=== PATIENT | female | born 1965 | race Asian ===

== ENCOUNTER 2019-03-12 15:10 | Inpatient (IN) | payer OTHER, SELFPAY ==
[2019-03-12] VITALS (8 sets, daily range): BP systolic 102–131; BP diastolic 54–65; PULSE 72–80; RESP 11–20; TEMP 36.6–36.8; O2SAT 96–99; BMI 25.0
[2019-03-12 15:43] LABS: Add Manual Diff / Slide Review NO; Basophils Absolute Auto 0 /uL (0-100); Basophils Percent Auto 0.3 % (0-2); Eosinophils Absolute Auto 0 /uL (0-450); Eosinophils Percent Auto 0.1 % (2-4); Hemoglobin 15.7 g/dL (12.0-16.0); Lymphocytes Absolute Auto 1400 /uL (1100-4500); Lymphocytes Percent Auto 14.1 % (25-40); Mean Corpuscular HGB Conc 34.8 % (30-36); Mean Corpuscular Hemoglobin 28.7 PG (26-34); Mean Corpuscular Volume 82.5 fL (80-100); Monocytes Absolute Auto 600 /uL (0-900); Monocytes Percent Auto 6.6 % (3-14); Neutrophils Absolute Auto 7700 /uL (1500-7000); Neutrophils Percent Auto 78.9 % (50-75); Platelet Count 322 X10^3/uL (150-400); Red Blood Cell Count 5.45 X10^6/uL (4.0-5.2); Red Cell Distribution Width 13.2 % (11.6-14.8); White Blood Cell Count 9.7 X10^3/uL (4.5-11.0)
[2019-03-12 15:44] LABS: Prothrombin Time 11.5 SECONDS (10.1-12.7)
[2019-03-12 15:47] LABS: PTT Partial Thromboplastin Tim 32 SECONDS (26.4-36.2)
[2019-03-12 15:49] LABS: Alanine Aminotransferase 17 IU/L (9-52); Albumin 4.5 g/dL (3.5-5.0); Albumin Globulin Ratio 1.3 (1.0-2.8); Alkaline Phosphatase 87 U/L (38-126); Aspartate Aminotransferase 23 IU/L (14-36); BUN Creatinine Ratio 28.3 (6-22); Bilirubin Total 0.8 mg/dL (0.2-1.3); Blood Urea Nitrogen 17 mg/dL (7-17); Calcium 8.9 mg/dL (8.4-10.2); Carbon Dioxide 26 mmol/L (22-32); Estimated Glomerular Filt Rate > 60.0 mL/min (>60); Globulin 3.5 g/dL (1.7-4.1); Glucose 140 mg/dL (70-100); HEMOLYSIS < 15 (0-50); Lipase 637 U/L (23-300); Sodium 120 mmol/L (137-145)
[2019-03-12 15:52] LABS: Potassium 2.6 mmol/L (3.4-5.1)
[2019-03-12 15:53] LABS: Chloride 76 mmol/L (98-107)
[2019-03-12] MEDS: SODIUM CHLORIDE 0.9% 1,000 ML 1000 ML IV (16:12)
[2019-03-12] MEDS: ONDANSETRON 4 MG/2 ML INJ IV (16:13)
[2019-03-12] MEDS: POTASSIUM CHLORIDE 20 MEQ TAB 40 MEQ PO (16:16)
[2019-03-12] MEDS: POTASSIUM CHLORIDE 40 MEQ in SODIUM CHLORIDE 0.9% 500 ML 130 ML IV ×2 (16:36→23:50)
--- NOTE | 2019-03-12 17:30 | ED_ITS ---
HPI - Nausea/Vomiting/Diarrhea <NOAM Kirkland - Last Filed: 03/12/19 23:12> General Chief complaint: Nausea/Vomiting/Diarrhea Stated complaint: N/V/D Time Seen by Provider: 03/12/19 15:27 Source: patient and family Mode of arrival: ambulatory Limitations: no limitations History of Present Illness HPI Narrative: This is a 53-year-old female, nonsmoker, presents to ED after she got a phone call from her primary care physician's office. Patient reports she had blood drawn today and submitted a stool sample. Patient reports she has been having diarrhea for S last 7 days averaging 15 times per 24 hour. Patient also had nausea and vomiting initially 1-2 times for 2 days with fever which subsided and today at the doctor's office she had recurring vomiting. Patient denies blood in the stool or emesis. Patient reports generalized abdominal cramping with this. She denies recent travel outside the [place] camping or drinking on treated water, recent antibiotic medication treatment. Patient's friend had similar symptoms before patient had experienced. Patient denies urinary symptoms, chest pain, breathing trouble, fainting, dizziness, generalized weakness. Patient is currently taking terbinafine for fungal told nail infection. Related Data Home Medications Medication Instructions Recorded Confirmed calcium carbonate-vitamin D3 1 tab PO DAILY 03/12/19 03/12/19 [Calcium 500 + D] lisinopril 20 mg PO DAILY 03/12/19 03/12/19 metoclopramide HCl 10 mg PO QID PRN 03/12/19 03/12/19 omeprazole 20 mg PO DAILY 03/12/19 03/12/19 ondansetron 8 mg PO Q8H PRN 03/12/19 03/12/19 terbinafine HCl 250 mg PO DAILY 03/12/19 03/12/19 Previous Rx's Medication Instructions Recorded levofloxacin 500 mg PO DAILY 5 Days #5 tab 03/14/19 Allergies Allergy/AdvReac Type Severity Reaction Status Date / Time No Known Drug Allergies Allergy Verified 03/12/19 15:24 Review of Systems <NOAM Kirkland - Last Filed: 03/12/19 23:12> Review of Systems Narrative: General: See HPI HEENT: Denies sinus pain, ear pain, sore throat, difficulty swallowing, dizziness. Respiratory: Denies dyspnea, cough, wheezing, hemoptysis, sputum. Cardiovascular: Denies chest pain, palpitations, orthopnea, edema. Gastrointestinal: See HPI : Denies dysuria, frequency, incontinence, hematuria, urinary retention. Musculoskeletal: Denies weakness, joint pain or bony pain. Skin: Denies rash, skin lesions, or other. Neurologic: Denies weakness, headache, numbness, change in speech, confusion, seizures, incoordination. Psychiatric: No concerning psychosocial issues. 12-point review of systems is negative except for those stated above. PFSH <NOAM Kirkland - Last Filed: 03/12/19 23:12> Medical History (Updated 03/12/19 @ 18:25 by Jayro Pitts DO) GERD (gastroesophageal reflux disease) (Acute) HTN (hypertension) (Acute) Social History (Updated 03/12/19 @ 17:49 by NOAM Kirkland) household members: spouse Smoking Status: Never smoker alcohol intake: never Social History (Updated 03/12/19 @ 17:49 by NOAM Kirkland) household members: spouse Smoking Status: Never smoker alcohol intake: never Exam <NOAM Kirkland - Last Filed: 03/12/19 23:12> Narrative Exam Narrative: GEN: Alert, oriented x 3, well appearing and nourished, and in no acute distress. Head: Normal cephalic, atraumatic. No scalp or temporal tenderness, palpable mass or rash. EYES: Pupils are equal, round, and reactive to light and accommodation. Extraocular muscles are intact bilaterally. There is no subconjunctival hemorrhage, exudate and sclera non-icteric. ENT: Bilateral auditory canals and tympanic membranes clear. Hearing grossly intact. Nose without bleeding, purulent discharge or deviation. Facial sinuses nontender to palpate. Mucous membrane moist, no mucosal lesion. Throat without erythema, tonsillar hypertrophy or exudate. Uvula in midline, airway patent. Neck: Trachea in midline. No JVD, non-tender without lymphadenopathy. No masses or thyroid megaly. Supple, non-tender and no meningeal signs. CARDIAC: Normal regular rate and rhythm without murmurs, gallops, or rubs. No chest wall tenderness. No peripheral edema, cyanosis or pallor. Capillary refill is less than 2 seconds. RESPIRATORY: Lungs are cleat to auscultate bilaterally. No cough, wheezes, rales, or rhonchi. No stridor, respiratory distress, increase work of breathing, or accessary muscle used. ABD: Abdomen soft, nontender and non-distended. No guarding or rebound tenderness to palpate. Bowel sounds are normal in all 4 quadrants. There is no palpable masses or organomegaly. EXT: Full painless ROM of all extremities with no loss of sensation, strength, effusion or edema. SKIN: Warm, dry, normal color for patient. No erythema, lesions or rash over visible areas. BACK: Nontender without deformity or crepitance. No flank tenderness. NEUROLOGICAL: Alert and oriented to place, time and person. Sensation and motor function intact bilaterally. No facial droops, dysphasia. PSYCHIATRIC: Good judgement and reason, without hallucinations, abnormal affect or abnormal behaviors during the examination. Initial Vital Signs Initial Vital Signs: Vital Signs Temperature 98.2 F 03/12/19 15:24 Pulse Rate 72 03/12/19 15:24 Respiratory Rate 15 03/12/19 15:24 Blood Pressure 117/65 03/12/19 15:24 Pulse Oximetry 96 03/12/19 15:24 <Alea Odom DO - Last Filed: 03/15/19 19:20> Initial Vital Signs Initial Vital Signs: Vital Signs Temperature 98.2 F 03/12/19 15:24 Pulse Rate 72 03/12/19 15:24 Respiratory Rate 15 03/12/19 15:24 Blood Pressure 117/65 03/12/19 15:24 Pulse Oximetry 96 03/12/19 15:24 Course <NOAM Kirkland - Last Filed: 03/12/19 23:12> Orders Ordered: Discontinued Medications Heparin Sodium (Porcine) (Heparin) 5,000 unit SUBCUT BID [facility] Last Admin: 03/14/19 09:17 Dose: 5,000 unit Documented by: Admin: 03/13/19 20:27 Dose: 5,000 unit Documented by: Admin: 03/13/19 07:58 Dose: 5,000 unit Documented by: Admin: 03/12/19 22:01 Dose: 5,000 unit Documented by: HARVINDER Sodium Chloride (Normal Saline 0.9%) 1,000 mls @ 1,000 mls/hr IV BOLUS ONE Stop: 03/12/19 16:53 Last Infusion: 03/12/19 17:19 Dose: 0 mls/hr Documented by: Admin: 03/12/19 16:12 Dose: 1,000 mls/hr Documented by: JI Potassium Chloride 40 meq/ (Sodium Chloride) 520 mls @ 130 mls/hr IV NOW ONE Stop: 03/12/19 19:59 Last Infusion: 03/13/19 00:15 Dose: 0 mls/hr Documented by: LISANDRO Cosigned by: CHRISTOPHER Infusion: 03/12/19 17:57 Dose: 130 mls/hr Documented by: LAKIA Cosigned by: KATHRYN Infusion: 03/12/19 17:19 Dose: 0 mls/hr Documented by: JI Cosigned by: BTONER Admin: 03/12/19 16:36 Dose: 130 mls/hr Documented by: JI Cosigned by: JOSE MARIA Sodium Chloride (Normal Saline 0.9%) 1,000 mls @ 75 mls/hr IV CONT BREANA Last Infusion: 03/13/19 08:00 Dose: 0 mls/hr Documented by: Admin: 03/12/19 19:23 Dose: 75 mls/hr Documented by: HARVINDER Potassium Chloride 40 meq/ (Sodium Chloride) 520 mls @ 130 mls/hr IV NOW ONE Stop: 03/13/19 03:25 Last Infusion: 03/13/19 04:34 Dose: 0 mls/hr Documented by: LISANDRO Cosigned by: ROBBI Admin: 03/12/19 23:50 Dose: 130 mls/hr Documented by: LISANDRO Cosigned by: CHRISTOPHER Levofloxacin (Levaquin) 750 mg in 150 mls @ 100 mls/hr IV Q24H [facility] Last Admin: 03/14/19 01:10 Dose: 100 mls/hr Documented by: Infusion: 03/13/19 07:56 Dose: 0 mls/hr Documented by: Admin: 03/13/19 04:24 Dose: 100 mls/hr Documented by: LISANDRO Sodium Chloride (Normal Saline 0.9%) 250 mls @ 21 mls/hr IV Q24H PRN PRN Reason: Flush Non-Formulary Medication (Patient's Own Medication) 0 each PO PRN PRN PRN Reason: HOME MEDICATION STORAGE Ondansetron HCl (Zofran) 4 mg IV NOW ONE Stop: 03/12/19 15:55 Last Admin: 03/12/19 16:13 Dose: 4 mg Documented by: JI Ondansetron HCl (Zofran) 4 mg IV Q8HR PRN PRN Reason: Nausea And Vomiting Potassium Chloride (Klor-Con M20) 40 meq PO DAILYCC [facility] Potassium Chloride (Klor-Con M20) 40 meq PO NOW ONE Stop: 03/12/19 16:15 Last Admin: 03/12/19 16:16 Dose: 40 meq Documented by: JI Sodium Chloride (Normal Saline 0.9% Flush) 10 ml IV PRN PRN PRN Reason: Flush Last Admin: 03/13/19 20:27 Dose: 10 ml Documented by: HARVINDER Sodium Chloride (Normal Saline 0.9% Flush) 10 ml IV BID [facility] Last Admin: 03/14/19 09:16 Dose: 10 ml Documented by: Admin: 03/14/19 00:51 Dose: Not Given Documented by: Admin: 03/13/19 07:58 Dose: 10 ml Documented by: OSVALDO Vital Signs Vital signs: Vital Signs - 8 hr 03/12/19 15:24 03/12/19 15:30 03/12/19 16:14 Temperature 98.2 F Pulse Rate 72 79 72 Respiratory Rate 15 11 L 14 Blood Pressure 117/65 Blood Pressure [Left Arm] 115/63 113/59 L Pulse Oximetry 96 98 98 <Alea Odom DO - Last Filed: 03/15/19 19:20> Orders Ordered: Discontinued Medications Heparin Sodium (Porcine) (Heparin) 5,000 unit SUBCUT BID [facility] Last Admin: 03/14/19 09:17 Dose: 5,000 unit Documented by: Admin: 03/13/19 20:27 Dose: 5,000 unit Documented by: Admin: 03/13/19 07:58 Dose: 5,000 unit Documented by: Admin: 03/12/19 22:01 Dose: 5,000 unit Documented by: HARVINDER Sodium Chloride (Normal Saline 0.9%) 1,000 mls @ 1,000 mls/hr IV BOLUS ONE Stop: 03/12/19 16:53 Last Infusion: 03/12/19 17:19 Dose: 0 mls/hr Documented by: Admin: 03/12/19 16:12 Dose: 1,000 mls/hr Documented by: JI Potassium Chloride 40 meq/ (Sodium Chloride) 520 mls @ 130 mls/hr IV NOW ONE Stop: 03/12/19 19:59 Last Infusion: 03/13/19 00:15 Dose: 0 mls/hr Documented by: LISANDRO Cosigned by: CHRISTOPHER Infusion: 03/12/19 17:57 Dose: 130 mls/hr Documented by: LAKIA Cosigned by: KATHRYN Infusion: 03/12/19 17:19 Dose: 0 mls/hr Documented by: JI Cosigned by: BTONER Admin: 03/12/19 16:36 Dose: 130 mls/hr Documented by: JI Cosigned by: JOSE MARIA Sodium Chloride (Normal Saline 0.9%) 1,000 mls @ 75 mls/hr IV CONT BREANA Last Infusion: 03/13/19 08:00 Dose: 0 mls/hr Documented by: Admin: 03/12/19 19:23 Dose: 75 mls/hr Documented by: HARVINDER Potassium Chloride 40 meq/ (Sodium Chloride) 520 mls @ 130 mls/hr IV NOW ONE Stop: 03/13/19 03:25 Last Infusion: 03/13/19 04:34 Dose: 0 mls/hr Documented by: LISANDRO Cosigned by: ROBBI Admin: 03/12/19 23:50 Dose: 130 mls/hr Documented by: LISANDRO Cosigned by: CHRISTOPHER Levofloxacin (Levaquin) 750 mg in 150 mls @ 100 mls/hr IV Q24H [facility] Last Admin: 03/14/19 01:10 Dose: 100 mls/hr Documented by: Infusion: 03/13/19 07:56 Dose: 0 mls/hr Documented by: Admin: 03/13/19 04:24 Dose: 100 mls/hr Documented by: LISANDRO Sodium Chloride (Normal Saline 0.9%) 250 mls @ 21 mls/hr IV Q24H PRN PRN Reason: Flush Non-Formulary Medication (Patient's Own Medication) 0 each PO PRN PRN PRN Reason: HOME MEDICATION STORAGE Ondansetron HCl (Zofran) 4 mg IV NOW ONE Stop: 03/12/19 15:55 Last Admin: 03/12/19 16:13 Dose: 4 mg Documented by: JI Ondansetron HCl (Zofran) 4 mg IV Q8HR PRN PRN Reason: Nausea And Vomiting Potassium Chloride (Klor-Con M20) 40 meq PO DAILYCC [facility] Potassium Chloride (Klor-Con M20) 40 meq PO NOW ONE Stop: 03/12/19 16:15 Last Admin: 03/12/19 16:16 Dose: 40 meq Documented by: JI Sodium Chloride (Normal Saline 0.9% Flush) 10 ml IV PRN PRN PRN Reason: Flush Last Admin: 03/13/19 20:27 Dose: 10 ml Documented by: HARVINDER Sodium Chloride (Normal Saline 0.9% Flush) 10 ml IV BID BRE[facility] Last Admin: 03/14/19 09:16 Dose: 10 ml Documented by: Admin: 03/14/19 00:51 Dose: Not Given Documented by: Admin: 03/13/19 07:58 Dose: 10 ml Documented by: OSVALDO Vital Signs Vital signs: Vital Signs - 8 hr 03/12/19 15:24 03/12/19 15:30 03/12/19 16:14 Temperature 98.2 F Pulse Rate 72 79 72 Respiratory Rate 15 11 L 14 Blood Pressure 117/65 Blood Pressure [Left Arm] 115/63 113/59 L Pulse Oximetry 96 98 98 MDM - Nausea/Vomiting/Diarrhea <NOAM Kirkland - Last Filed: 03/12/19 23:12> Differential Diagnosis Differential diagnosis: Likely gastroenteritis, clostridium difficile infection, dehydration and other (Electrolyte imbalance from excessive diarrhea) Medical Records Attestation: I reviewed the patient's medical records. Lab Data Attestation: I reviewed the patient's lab results. Result diagrams: 03/14/19 05:49 03/14/19 14:06 Labs: Lab Results 03/12/19 03/12/19 03/12/19 Range/Units 15:20 15:20 15:20 WBC 9.7 (4.5-11.0) X10^3/uL RBC 5.45 H (4.0-5.2) X10^6/uL Hgb 15.7 (12.0-16.0) g/dL Hct 45.0 (36-46) % MCV 82.5 (80-100) fL MCH 28.7 (26-34) PG MCHC 34.8 (30-36) % RDW 13.2 (11.6-14.8) % Plt Count 322 (150-400) X10^3/uL Neut % (Auto) 78.9 H (50-75) % Lymph % (Auto) 14.1 L (25-40) % [place] % (Auto) 6.6 (3-14) % Eos % (Auto) 0.1 L (2-4) % Baso % (Auto) 0.3 (0-2) % Neut # (Auto) 7700 H (3527-4633) /uL Lymph # (Auto) 1400 (2650-0201) /uL Glenn # (Auto) 600 (0-900) /uL Eos # (Auto) 0 (0-450) /uL Baso # (Auto) 0 (0-100) /uL PT 11.5 (10.1-12.7) SECONDS INR 1.0 (0.9-1.3) APTT 32 (26.4-36.2) SECONDS Sodium 120 L (137-145) mmol/L Potassium 2.6 L* (3.4-5.1) mmol/L Chloride 76 L* (98-107) mmol/L Carbon Dioxide 26 (22-32) mmol/L BUN 17 (7-17) mg/dL Creatinine 0.60 (0.52-1.04) mg/dL Estimated GFR > 60.0 (>60) mL/min BUN/Creatinine Ratio 28.3 H (6-22) Glucose 140 H (70-100) mg/dL Calcium 8.9 (8.4-10.2) mg/dL Total Bilirubin 0.8 (0.2-1.3) mg/dL AST 23 (14-36) IU/L ALT 17 (9-52) IU/L Alkaline Phosphatase 87 (38-126) U/L Total Protein 8.0 (6.3-8.2) g/dL Albumin 4.5 (3.5-5.0) g/dL Globulin 3.5 (1.7-4.1) g/dL Albumin/Globulin Ratio 1.3 (1.0-2.8) Lipase 637 H (23-300) U/L ECG Data Attestation: I personally reviewed and interpreted this ECG as follows: Prior ECG tracings: not available for review Interpretation: Sinus rhythm rate at 73. Normal axis No ST elevation or depression. Flat T waves-non specific Twave abnormalty MDM Narrative Medical decision making narrative: This patient presents to ED after receiving a phone call from his primary care physician's office after her blood test that was drawn today. Patient has been having excessive nonbloody diarrhea for last 7 days and intermittent nausea and vomiting. Patient has been travel to [place], drinking untreated water, recent antibiotic medication use. Patient did have initially fever for couple of days which resolved. Patient reports diffused abdominal cramping pain. Patient denies physical symptoms such as weakness, dizziness, chest pain, short of breath. Patient had provided stool sample at [facility]. Today's blood test at [facility] shows critical result of potassium of 2.6, chloride 76, and low sodium is 120. Her potassium was replaced by p.o. 40 mEq of KCl and 40 mEq of IV along 1 L of normal saline hydration. Patient's EKG was normal sinus rhythm with nonspecific T-waves without ST elevation or depression. The patient's case was discussed with Dr. Powers and he kindly accepted patient's care as an inpatient status to correct her electrolyte imbalance. Discussed the findings with patient and patient agrees with the treatment plan and no further questions were expressed at this time. <Alea Odom, DO - Last Filed: 03/15/19 19:20> Lab Data Labs: Lab Results 03/12/19 03/12/19 03/12/19 Range/Units 15:20 15:20 15:20 WBC 9.7 (4.5-11.0) X10^3/uL RBC 5.45 H (4.0-5.2) X10^6/uL Hgb 15.7 (12.0-16.0) g/dL Hct 45.0 (36-46) % MCV 82.5 (80-100) fL MCH 28.7 (26-34) PG MCHC 34.8 (30-36) % RDW 13.2 (11.6-14.8) % Plt Count 322 (150-400) X10^3/uL Neut % (Auto) 78.9 H (50-75) % Lymph % (Auto) 14.1 L (25-40) % Glenn % (Auto) 6.6 (3-14) % Eos % (Auto) 0.1 L (2-4) % Baso % (Auto) 0.3 (0-2) % Neut # (Auto) 7700 H (1185-9524) /uL Lymph # (Auto) 1400 (5677-6575) /uL Glenn # (Auto) 600 (0-900) /uL Eos # (Auto) 0 (0-450) /uL Baso # (Auto) 0 (0-100) /uL PT 11.5 (10.1-12.7) SECONDS INR 1.0 (0.9-1.3) APTT 32 (26.4-36.2) SECONDS Sodium 120 L (137-145) mmol/L Potassium 2.6 L* (3.4-5.1) mmol/L Chloride 76 L* (98-107) mmol/L Carbon Dioxide 26 (22-32) mmol/L BUN 17 (7-17) mg/dL Creatinine 0.60 (0.52-1.04) mg/dL Estimated GFR > 60.0 (>60) mL/min BUN/Creatinine Ratio 28.3 H (6-22) Glucose 140 H (70-100) mg/dL Calcium 8.9 (8.4-10.2) mg/dL Total Bilirubin 0.8 (0.2-1.3) mg/dL AST 23 (14-36) IU/L ALT 17 (9-52) IU/L Alkaline Phosphatase 87 (38-126) U/L Total Protein 8.0 (6.3-8.2) g/dL Albumin 4.5 (3.5-5.0) g/dL Globulin 3.5 (1.7-4.1) g/dL Albumin/Globulin Ratio 1.3 (1.0-2.8) Lipase 637 H (23-300) U/L Discharge Plan Departure Patient Disposition: Admitted As Inpatient Clinical Impression: Acute hyponatremia, Acute hypokalemia Diarrhea Qualifiers: Diarrhea type: unspecified type Qualified Code(s): R19.7 - Diarrhea, unspecified Discharge Date/Time: 03/12/19 17:41 Instructions: Diarrhea, DI for Heart Failure, DI for Salmonellosis Referrals: Samantha Weiss DO [Primary Care Provider] - Admit Date/Time: 03/12/19 16:28 Admit Provider: Jayro Pitts
--- NOTE | 2019-03-12 18:17 | PM.HP.1 ---
History of Present Illness History of Present Illness Date Patient Seen: 03/12/19 Time Patient Seen: 18:17 Chief complaint: N/V/D Narrative: Luis Miguel Hu is a 53-year-old female with past medical history of hypertension and GERD who presented with 1 week of diarrhea. Patient states that last week she developed nausea, NBNB vomiting, and loose watery stools along with fever to 102 which subsided the following day as did her nausea and vomiting. Her loose stools however did continue, and she has been having watery diarrhea around 15 times per day, and she has not eaten or drinking much since then. She [facility] and they sent her for lab work and then was told to come to the emergency room. She Has not had further fever since 1 week ago. She has mild cramping abdominal pain as well primarily in the bilateral lower quadrants. She denies any hematemesis, bright red blood per rectum, melena, chest pain, palpitations, lower extremity edema, rash. She denies any headaches or vision changes, but her reports some dizziness in the car ride today. She does not report any unusual intake food, but does have a friend with less severe symptoms. She denies any recent travel or hiking, no seafood intake, and no swimming. She denies any recent antibiotic use, but is on terbinafine for nail fungus. In the ED her labs were remarkable for a sodium of 120, potassium of 2.6. Her lipase was mildly elevated at 637. There is no leukocytosis. She had no abdominal imaging. She was admitted to Medicine for hyponatremia and hypokalemia. Patient History Medical History (Updated 03/12/19 @ 18:25 by Jayro Pitts DO) GERD (gastroesophageal reflux disease) (Acute) HTN (hypertension) (Acute) Social History (Updated 03/12/19 @ 17:49 by NOAM Kirkland) household members: spouse Smoking Status: Never smoker alcohol intake: never Family & Social History Social History: household members spouse Prior Living Arrangements House Safety & Behavioral: Feels Safe in Current Yes Environment Been Physically Hurt or No Threatened By a Person Suicidal Ideation Description None Suicide Plan Description No Plan Tobacco & Substance use: Smoking Status Never smoker alcohol intake never Substance Use Type does not use Meds Home Medications and Allergies Home Medications Medication Instructions Recorded Confirmed Type calcium carbonate-vitamin D3 1 tab PO DAILY 03/12/19 03/12/19 History [Calcium 500 + D] diphenoxylate-atropine 2 tab PO QID PRN 03/12/19 03/12/19 History lisinopril 20 mg PO DAILY 03/12/19 03/12/19 History metoclopramide HCl 10 mg PO QID PRN 03/12/19 03/12/19 History omeprazole 20 mg PO DAILY 03/12/19 03/12/19 History ondansetron 8 mg PO Q8H PRN 03/12/19 03/12/19 History terbinafine HCl 250 mg PO DAILY 03/12/19 03/12/19 History Allergies Allergy/AdvReac Type Severity Reaction Status Date / Time No Known Drug Allergies Allergy Verified 03/12/19 15:24 Review of Systems Review of Systems Narrative: All other systems reviewed with the patient and are negative unless otherwise stated. Exam Vital Signs (past 8 hours): - 03/12/19 15:24 03/12/19 15:30 03/12/19 16:14 Temperature 98.2 F Pulse Rate 72 79 72 Respiratory Rate 15 11 L 14 Blood Pressure 117/65 Blood Pressure [Left Arm] 115/63 113/59 L Pulse Oximetry 96 98 98 03/12/19 17:13 Temperature Pulse Rate 80 Respiratory Rate 12 Blood Pressure Blood Pressure [Left Arm] 118/65 Pulse Oximetry 99 Oxygen Delivery Method Room Air Objective Labs Result Diagrams: 03/12/19 15:20 03/12/19 15:20 Labs: Laboratory Results - last 24 hr 03/12/19 03/12/19 03/12/19 15:20 15:20 15:20 WBC 9.7 RBC 5.45 H Hgb 15.7 Hct 45.0 MCV 82.5 MCH 28.7 MCHC 34.8 RDW 13.2 Plt Count 322 Neut % (Auto) 78.9 H Lymph % (Auto) 14.1 L [place] % (Auto) 6.6 Eos % (Auto) 0.1 L Baso % (Auto) 0.3 Neut # (Auto) 7700 H Lymph # (Auto) 1400 [place] # (Auto) 600 Eos # (Auto) 0 Baso # (Auto) 0 PT 11.5 INR 1.0 APTT 32 Sodium 120 L Potassium 2.6 L* Chloride 76 L* Carbon Dioxide 26 BUN 17 Creatinine 0.60 Estimated GFR > 60.0 BUN/Creatinine Ratio 28.3 H Glucose 140 H Calcium 8.9 Total Bilirubin 0.8 AST 23 ALT 17 Alkaline Phosphatase 87 Total Protein 8.0 Albumin 4.5 Globulin 3.5 Albumin/Globulin Ratio 1.3 Lipase 637 H Assessment & Plan Assessment & Plan narrative: Luis Miguel Hu is a 53-year-old female with past medical history hypertension who was admitted to the hospital with hyponatremia and hypokalemia secondary to diarrhea and decreased p.o. intake. 1. Hyponatremia, unknown duration but likely chronic, present on admission -patient with a sodium of 120 on admission. Likely secondary to GI fluid loss and poor p.o. intake. - f/u urine Osm and urine electrolytes - continue to follow Na q4 hr, avoid over-correction. Goal sodium of 128 over 1st 24 hours. -continue normal saline at 75 cc/hour given weight of 62 kg. 2. Hypokalemia, acute, present on admission -likely secondary to GI losses. She was given IV and p.o. replacement in the emergency room. -continue to follow BMP as noted above, replete as necessary 3. Diarrhea, acute, present on admission -patient reports large number of watery stools daily for the past week. She further reported a fever on the onset which has subsequently resolved. I suspect a viral gastroenteritis at this time, however given the severity of symptoms as well as the duration will send a workup as noted below. No recent antibiotic use to suggest C difficile. Her white blood cell count is normal, as are her LFTs. Her lipase is mildly elevated but she has no epigastric pain consistent with pancreatitis, and this is unlikely as it is not seemingly related to food. -stool culture, O and P -send GI panel 4. HTN, chronic - -hold home medications in setting diarrhea and decreased p.o. intake Dispo: Admitted as inpatient as stay is likely to exceed 2 midnights given hyponatremia DVT: HSQ Code: Full FEN/GI: Regular diet as tolerated Time Spent With Patient Time with patient: Greater than 35 minutes Quality VTE Deep Vein Thrombosis/Pulmonary Embolism Present on Admission: No
[2019-03-12 18:35] LABS: Potassium Urine Random 6.5 mmol/L; Sodium Urine Random 8 mmol/L (30-90)
[2019-03-12] MEDS: SODIUM CHLORIDE 0.9% 1,000 ML 75 ML IV (19:23)
[2019-03-12 19:53] LABS: BUN Creatinine Ratio 21.7 (6-22); Blood Urea Nitrogen 13 mg/dL (7-17); Calcium 8.1 mg/dL (8.4-10.2); Carbon Dioxide 28 mmol/L (22-32); Chloride 83 mmol/L (98-107); Estimated Glomerular Filt Rate > 60.0 mL/min (>60); Glucose 165 mg/dL (70-100); HEMOLYSIS < 15 (0-50); Potassium 3.3 mmol/L (3.4-5.1); Sodium 123 mmol/L (137-145)
[2019-03-12] MEDS: HEPARIN 5,000 UNIT/ML VIAL 5000 UNIT SUBCUT (22:01)
--- NOTE | 2019-03-12 23:18 | PC.NURSE ---
Admission/Evening Shift Note- Patient arrived to room from ER via wheelchair. Admission questions done, medications reviewed, physical assessment done. Oriented patient to bed and bed controls, room, bathroom, lights, menu, phone, and call cintron/tv remote. Patient alert and oriented and able to make needs known to staff. Patient pleasent, calm, and cooperative with care. No complaints of pain or discomfort. No complaints of N/V at this time. Safety measures in place. Patient agrees to call for assistance. willl continue to [facility].
[2019-03-12 23:49] LABS: Magnesium 2.1 mg/dL (1.6-2.3)
[2019-03-13] VITALS (9 sets, daily range): BP systolic 96–145; BP diastolic 55–91; PULSE 69–87; RESP 16–20; TEMP 36.1–36.9; O2SAT 96–100
[2019-03-13 01:24] LABS: Campylobacter Not Detected (Not Detect); Clostridium difficile toxin AB Not Detected (Not Detect); Plesiomonsa shigelloides Not Detected (Not Detect)
[2019-03-13 01:25] LABS: Adenovirus F 40/41 Not Detected (Not Detect); Astrovirus Not Detected (Not Detect); Cryptosporidium Not Detected (Not Detect); Cyclospora cayetanensis Not Detected (Not Detect); Entamoeba histolytica Not Detected (Not Detect); Enteroaggregative E.coli Not Detected (Not Detect); Enteropathogenic E.coli Not Detected (Not Detect); Enterotoxigenic E.coli It/st Not Detected (Not Detect); Giardia lamblia Not Detected (Not Detect); Norovirus GI/GII Not Detected (Not Detect); Rotavirus A Not Detected (Not Detect); Salmonella Detected (Not Detect); Shiga-like toxin-prod E.coli Not Detected (Not Detect); Shigella/Enteroinvasive E.coli Not Detected (Not Detect); Vibrio Not Detected (Not Detect); Vibrio cholerae Not Detected (Not Detect); Yersinia enterocolitica Not Detected (Not Detect)
[2019-03-13] MEDS: levoFLOXacin 750 MG/150 ML PIGGYBACK 100 MG IV (04:24)
--- NOTE | 2019-03-13 04:31 | PC.NURSE ---
Called to room by BARNEY Santiago. Pt noted to have home meds that she had taken out of her bag and took herself as these had not been removed upon admission. She reports taking Reglan, Lomotil and Zofran ODT. All medications removed from bedside and sent to pharmacy per protocol. NOAM Coy made aware of situation. Patient is compliant with and agrees medications being held in pharmacy.
[2019-03-13 05:34] LABS: Add Manual Diff / Slide Review NO; Basophils Absolute Auto 0 /uL (0-100); Basophils Percent Auto 0.3 % (0-2); Eosinophils Absolute Auto 0 /uL (0-450); Eosinophils Percent Auto 0.4 % (2-4); Hematocrit 38.1 % (36-46); Hemoglobin 12.9 g/dL (12.0-16.0); Lymphocytes Absolute Auto 1300 /uL (1100-4500); Lymphocytes Percent Auto 23.1 % (25-40); Mean Corpuscular HGB Conc 33.8 % (30-36); Mean Corpuscular Hemoglobin 28.7 PG (26-34); Mean Corpuscular Volume 84.9 fL (80-100); Monocytes Absolute Auto 600 /uL (0-900); Monocytes Percent Auto 11.1 % (3-14); Neutrophils Absolute Auto 3600 /uL (1500-7000); Neutrophils Percent Auto 65.1 % (50-75); Platelet Count 257 X10^3/uL (150-400); Red Blood Cell Count 4.49 X10^6/uL (4.0-5.2); Red Cell Distribution Width 13.5 % (11.6-14.8); White Blood Cell Count 5.6 X10^3/uL (4.5-11.0)
[2019-03-13 05:39] LABS: Blood Urea Nitrogen 9 mg/dL (7-17); Calcium 7.7 mg/dL (8.4-10.2); Carbon Dioxide 26 mmol/L (22-32); Chloride 95 mmol/L (98-107); Estimated Glomerular Filt Rate > 60.0 mL/min (>60); Glucose 110 mg/dL (70-100); HEMOLYSIS < 15 (0-50); Magnesium 2.2 mg/dL (1.6-2.3); Potassium 3.7 mmol/L (3.4-5.1); Sodium 129 mmol/L (137-145)
[2019-03-13 06:29] LABS: TSH w/ Reflex to FT4 1.19 uIU/mL (0.47-4.68)
[2019-03-13] MEDS: SODIUM CHLORIDE 0.9% FLUSH 10 ML IV ×2 (07:58→20:27)
[2019-03-13] MEDS: HEPARIN 5,000 UNIT/ML VIAL 5000 UNIT SUBCUT ×2 (07:58→20:27)
--- NOTE | 2019-03-13 09:23 | P.PN_ITS ---
Subjective Subjective Date Patient Seen: 03/13/19 Time Patient Seen: 09:00 Interval history: Luis Miguel Hu is a 53-year-old female with past medical history of hypertension and GERD who presented with 1 week of diarrhea was admitted for hyponatremia, hypokalemia secondary to volume loss from diarrhea. Her urine studies revealed a low urine sodium consistent with hypovolemic hyponatremia, and GI panel returned with Salmonella so she was started on Levaquin overnight. She feels improved this morning with less frequent episodes of diarrhea. She denies any fevers, chills, chest pain, shortness of breath. She does endorse some gas pains in the left upper quadrant, but improved lower abdominal pain. Her sodium went up to 129 this morning from 07/22 on admission, so her fluids were held. She is pending a repeat Na now. Her potassium has also improved this morning and is now within the normal range. Exam Vital Signs (past 8 hours): - 03/13/19 04:00 03/13/19 07:45 03/13/19 08:00 Temperature 97.0 F L 97.9 F Pulse Rate 87 69 Respiratory Rate 18 20 Blood Pressure 100/60 96/55 L Pulse Oximetry 99 99 96 Oxygen Delivery Method Room Air Oxygen Flow Rate 0 Narrative Exam Narrative: GENERAL APPEARANCE: Well developed, well nourished, in no acute distress. SKIN: Inspection of the skin reveals no rashes, ulcerations or petechiae. HEENT: The sclerae were anicteric and conjunctivae were pink and moist. Extraocular movements were intact and pupils were equal, round with normal accommodation. External inspection of the ears and nose showed no scars, lesions, or masses. Lips, teeth, and gums showed normal mucosa. The oral mucosa, hard and soft palate, tongue and posterior pharynx were unremarkable. NECK: Supple and symmetric. There was no thyroid enlargement, and no tenderness, or masses were felt. CHEST: Normal AP diameter and normal contour without any kyphoscoliosis. LUNGS: Auscultation of the lungs revealed no wheezes, rhonchi, or rales. CARDIOVASCULAR: There was a regular rate and rhythm without any murmurs, gallops, rubs. Peripheral pulses were 2+ and symmetric. ABDOMEN: Soft and nontender with normal bowel sounds. No ascites was noted. MUSCULOSKELETAL: There was no tenderness or effusions noted. Muscle strength and tone were normal. EXTREMITIES: No cyanosis, clubbing or edema. NEUROLOGIC: Alert and oriented x 3. Normal affect. Gait was normal. Strength is +5/5 in the Upper Extremities and Lower Extremities Bilaterally. Sensation to touch was normal. Objective Labs Result Diagrams: 03/13/19 05:00 03/13/19 05:00 Labs: Laboratory Results - last 24 hr 03/12/19 03/12/19 03/12/19 15:20 15:20 15:20 WBC 9.7 RBC 5.45 H Hgb 15.7 Hct 45.0 MCV 82.5 MCH 28.7 MCHC 34.8 RDW 13.2 Plt Count 322 Neut % (Auto) 78.9 H Lymph % (Auto) 14.1 L Parmer % (Auto) 6.6 Eos % (Auto) 0.1 L Baso % (Auto) 0.3 Neut # (Auto) 7700 H Lymph # (Auto) 1400 [place]mer # (Auto) 600 Eos # (Auto) 0 Baso # (Auto) 0 PT 11.5 INR 1.0 APTT 32 Sodium 120 L Potassium 2.6 L* Chloride 76 L* Carbon Dioxide 26 BUN 17 Creatinine 0.60 Estimated GFR > 60.0 BUN/Creatinine Ratio 28.3 H Glucose 140 H Calcium 8.9 Magnesium Total Bilirubin 0.8 AST 23 ALT 17 Alkaline Phosphatase 87 Total Protein 8.0 Albumin 4.5 Globulin 3.5 Albumin/Globulin Ratio 1.3 Lipase 637 H TSH Ur Random Sodium Ur Random Potassium Stl C. cayetanensis PCR Stool Rotavirus (PCR) Stool Adenovirus (PCR) Stool Astrovirus (PCR) Stool Cryptosporidium PCR Stl E.coli Shiga Tox PCR St Sh/Enteroin Ecoli PCR Stool E coli O157 PCR Stl Enterotoxigenic E PCR Stool EPEC (PCR) Stl E. histolytica PCR Stool Giardia Lamblia PCR Stl P. shigelloides PCR St Y.enterocolitica PCR Stool Vibrio (PCR) Stl Vibrio cholerae PCR Stl Enteroaggr Ecoli PCR Stl Norovirus GI/GII PCR Campylobacter (PCR) C. difficile Tox (PCR) Salmonella (PCR) 03/12/19 03/12/19 03/12/19 18:05 19:37 19:37 WBC RBC Hgb Hct MCV MCH MCHC RDW Plt Count Neut % (Auto) Lymph % (Auto) Parmer % (Auto) Eos % (Auto) Baso % (Auto) Neut # (Auto) Lymph # (Auto) [place] # (Auto) Eos # (Auto) Baso # (Auto) PT INR APTT Sodium 123 L Potassium 3.3 L Chloride 83 L Carbon Dioxide 28 BUN 13 Creatinine 0.60 Estimated GFR > 60.0 BUN/Creatinine Ratio 21.7 Glucose 165 H Calcium 8.1 L Magnesium 2.1 Total Bilirubin AST ALT Alkaline Phosphatase Total Protein Albumin Globulin Albumin/Globulin Ratio Lipase TSH Ur Random Sodium 8 L Ur Random Potassium 6.5 Stl C. cayetanensis PCR Stool Rotavirus (PCR) Stool Adenovirus (PCR) Stool Astrovirus (PCR) Stool Cryptosporidium PCR Stl E.coli Shiga Tox PCR St Sh/Enteroin Ecoli PCR Stool E coli O157 PCR Stl Enterotoxigenic E PCR Stool EPEC (PCR) Stl E. histolytica PCR Stool Giardia Lamblia PCR Stl P. shigelloides PCR St Y.enterocolitica PCR Stool Vibrio (PCR) Stl Vibrio cholerae PCR Stl Enteroaggr Ecoli PCR Stl Norovirus GI/GII PCR Campylobacter (PCR) C. difficile Tox (PCR) Salmonella (PCR) 03/12/19 03/13/19 03/13/19 23:55 05:00 05:00 WBC 5.6 RBC 4.49 Hgb 12.9 Hct 38.1 MCV 84.9 MCH 28.7 MCHC 33.8 RDW 13.5 Plt Count 257 Neut % (Auto) 65.1 Lymph % (Auto) 23.1 L [place] % (Auto) 11.1 Eos % (Auto) 0.4 L Baso % (Auto) 0.3 Neut # (Auto) 3600 Lymph # (Auto) 1300 [place] # (Auto) 600 Eos # (Auto) 0 Baso # (Auto) 0 PT INR APTT Sodium 129 L Potassium 3.7 Chloride 95 L Carbon Dioxide 26 BUN 9 Creatinine 0.60 Estimated GFR > 60.0 BUN/Creatinine Ratio 15.0 Glucose 110 H Calcium 7.7 L Magnesium 2.2 Total Bilirubin AST ALT Alkaline Phosphatase Total Protein Albumin Globulin Albumin/Globulin Ratio Lipase TSH Ur Random Sodium Ur Random Potassium Stl C. cayetanensis PCR Not detected Stool Rotavirus (PCR) Not detected Stool Adenovirus (PCR) Not detected Stool Astrovirus (PCR) Not detected Stool Cryptosporidium PCR Not detected Stl E.coli Shiga Tox PCR Not detected St Sh/Enteroin Ecoli PCR Not detected Stool E coli O157 PCR Not Reportable Stl Enterotoxigenic E PCR Not detected Stool EPEC (PCR) Not detected Stl E. histolytica PCR Not detected Stool Giardia Lamblia PCR Not detected Stl P. shigelloides PCR Not detected St Y.enterocolitica PCR Not detected Stool Vibrio (PCR) Not detected Stl Vibrio cholerae PCR Not detected Stl Enteroaggr Ecoli PCR Not detected Stl Norovirus GI/GII PCR Not detected Campylobacter (PCR) Not detected C. difficile Tox (PCR) Not detected Salmonella (PCR) Detected H 03/13/19 05:00 WBC RBC Hgb Hct MCV MCH MCHC RDW Plt Count Neut % (Auto) Lymph % (Auto) Parmer % (Auto) Eos % (Auto) Baso % (Auto) Neut # (Auto) Lymph # (Auto) [place]mer # (Auto) Eos # (Auto) Baso # (Auto) PT INR APTT Sodium Potassium Chloride Carbon Dioxide BUN Creatinine Estimated GFR BUN/Creatinine Ratio Glucose Calcium Magnesium Total Bilirubin AST ALT Alkaline Phosphatase Total Protein Albumin Globulin Albumin/Globulin Ratio Lipase TSH 1.19 Ur Random Sodium Ur Random Potassium Stl C. cayetanensis PCR Stool Rotavirus (PCR) Stool Adenovirus (PCR) Stool Astrovirus (PCR) Stool Cryptosporidium PCR Stl E.coli Shiga Tox PCR St Sh/Enteroin Ecoli PCR Stool E coli O157 PCR Stl Enterotoxigenic E PCR Stool EPEC (PCR) Stl E. histolytica PCR Stool Giardia Lamblia PCR Stl P. shigelloides PCR St Y.enterocolitica PCR Stool Vibrio (PCR) Stl Vibrio cholerae PCR Stl Enteroaggr Ecoli PCR Stl Norovirus GI/GII PCR Campylobacter (PCR) C. difficile Tox (PCR) Salmonella (PCR) Assessment & Plan Assessment & Plan narrative: Luis Miguel Hu is a 53-year-old female with past medical history of hypertension and GERD who was admitted to the hospital with hyponatremia and hypokalemia secondary to diarrhea and decreased p.o. intake. 1. Hyponatremia, unknown duration but likely chronic, present on admission - patient with a sodium of 120 on admission. Likely secondary to GI fluid loss and poor p.o. intake. Now improved rapidly to 129, will hold fluids. Pending repeat Na, may have to start d5w to avoid over correction. Urine Na was 8 consistent with hypovolemic hyponatremia. - continue to follow Na q6 hr, avoid over-correction. Goal sodium of 128 over 1st 24 hours, then goal of normal tomorrow. - normal saline held given Na of 129 this AM. 2. Hypokalemia, acute, present on admission -likely secondary to GI losses. She was given IV and p.o. replacement in the emergency room. Required additional oral replacement overnight and is now within normal limits. -continue to follow BMP as noted above, replete as necessary 3. Diarrhea, acute, infectious - Secondary to salmonella given GI panel results. Treatment is usually supportive however given the frequency of her bowel movements, reported fever, and need for hospitalization we will treat this with Levaquin with plan for 5 days. - levaquin x5 days, can conclude as outpatient once hyponatremia has improved. 4. HTN, chronic - -continue to hold home medications in setting diarrhea and decreased p.o. intake Dispo: remains inpatient, possible discharge tomorrow pending sodium and PO intake. DVT: HSQ Quality VTE Deep Vein Thrombosis/Pulmonary Embolism Present on Admission: No
[2019-03-13 11:33] LABS: BUN Creatinine Ratio 13.3 (6-22); Blood Urea Nitrogen 8 mg/dL (7-17); Calcium 8.3 mg/dL (8.4-10.2); Carbon Dioxide 26 mmol/L (22-32); Chloride 95 mmol/L (98-107); Estimated Glomerular Filt Rate > 60.0 mL/min (>60); Glucose 102 mg/dL (70-100); HEMOLYSIS < 15 (0-50); Potassium 3.6 mmol/L (3.4-5.1); Sodium 131 mmol/L (137-145)
--- NOTE | 2019-03-13 11:51 | PC.NURSE ---
Day Shift- Pt A&OX4, able to make needs known using call light. Pt OOB with SBA, denies dizziness or light-headedness, chest pain/pressure, nausea. ABd cramping minimal, BS are hyperactive, passing flatus. BM X2 loose brown, small amount. IVF stopped at 0800 per order. Pt ate approx 30% of breakfast, denies nausea. Pt ambulated in hallway with steady gait with her for 1/2 lap around unit, tolerated well.
--- NOTE | 2019-03-13 17:31 | PC.NURSE ---
Evening Shift Note- Patient alert and oriented and able to make needs known to staff. Patient pleasent, calm, and cooperative with care. No complaints of pain or discomfort. No complaints of N/V. Patient reports continued diarrhea. Lung sounds clear. No noted edema. steady gait noted. Safety measures in place. Patient independent,does agree to call for assistance as needed. call cintron and phone within reach. will continue to monitor.
[2019-03-13 18:59] LABS: BUN Creatinine Ratio 8.6 (6-22); Blood Urea Nitrogen 6 mg/dL (7-17); Calcium 8.7 mg/dL (8.4-10.2); Carbon Dioxide 26 mmol/L (22-32); Chloride 94 mmol/L (98-107); Estimated Glomerular Filt Rate > 60.0 mL/min (>60); Glucose 153 mg/dL (70-100); HEMOLYSIS < 15 (0-50); Potassium 3.5 mmol/L (3.4-5.1); Sodium 129 mmol/L (137-145)
[2019-03-14] MEDS: levoFLOXacin 750 MG/150 ML PIGGYBACK 100 MG IV (01:10)
[2019-03-14 03:47] VITALS: BP 119/72; PULSE 74; RESP 15; TEMP 36.7; O2SAT 99
[2019-03-14 06:15] LABS: Add Manual Diff / Slide Review NO; Basophils Absolute Auto 0 /uL (0-100); Basophils Percent Auto 0.4 % (0-2); Eosinophils Absolute Auto 0 /uL (0-450); Eosinophils Percent Auto 0.4 % (2-4); Hematocrit 39.5 % (36-46); Hemoglobin 13.4 g/dL (12.0-16.0); Lymphocytes Absolute Auto 1400 /uL (1100-4500); Lymphocytes Percent Auto 19.5 % (25-40); Mean Corpuscular Hemoglobin 28.5 PG (26-34); Monocytes Absolute Auto 700 /uL (0-900); Monocytes Percent Auto 9.9 % (3-14); Neutrophils Absolute Auto 4900 /uL (1500-7000); Neutrophils Percent Auto 69.8 % (50-75); Platelet Count 278 X10^3/uL (150-400); Red Cell Distribution Width 13.5 % (11.6-14.8)
[2019-03-14 06:20] LABS: BUN Creatinine Ratio 7.1 (6-22); Blood Urea Nitrogen 5 mg/dL (7-17); Calcium 8.4 mg/dL (8.4-10.2); Carbon Dioxide 26 mmol/L (22-32); Chloride 95 mmol/L (98-107); Estimated Glomerular Filt Rate > 60.0 mL/min (>60); Glucose 100 mg/dL (70-100); HEMOLYSIS < 15 (0-50); Potassium 3.5 mmol/L (3.4-5.1); Sodium 130 mmol/L (137-145)
[2019-03-14 07:34] VITALS: BP 125/82; PULSE 82; RESP 14; TEMP 37.2; O2SAT 99
[2019-03-14 07:35] VITALS: O2SAT 99
--- NOTE | 2019-03-14 07:42 | PC.NURSE ---
Pt having no pain or nausea. Still having a fair amount of diarrhea. Vitals stable. Tele: NSR
[2019-03-14] MEDS: SODIUM CHLORIDE 0.9% FLUSH 10 ML IV (09:16)
[2019-03-14] MEDS: HEPARIN 5,000 UNIT/ML VIAL 5000 UNIT SUBCUT (09:17)
[2019-03-14 11:30] VITALS: BP 115/58; PULSE 77; RESP 16; TEMP 37.3; O2SAT 99
[2019-03-14 14:27] LABS: BUN Creatinine Ratio 6.7 (6-22); Blood Urea Nitrogen 4 mg/dL (7-17); Carbon Dioxide 24 mmol/L (22-32); Chloride 95 mmol/L (98-107); Estimated Glomerular Filt Rate > 60.0 mL/min (>60); Glucose 132 mg/dL (70-100); HEMOLYSIS < 15 (0-50); Potassium 3.2 mmol/L (3.4-5.1); Sodium 133 mmol/L (137-145)
[2019-03-14 15:30] VITALS: BP 148/91; PULSE 84; RESP 17; TEMP 36.1; O2SAT 100
--- NOTE | 2019-03-14 17:12 | PM.DS.1 ---
History of Present Illness History of Present Illness Chief complaint: N/V/D Narrative: Luis Miguel Hu is a 53-year-old female with past medical history of hypertension and GERD who presented with 1 week of diarrhea. Patient states that last week she developed nausea, NBNB vomiting, and loose watery stools along with fever to 102 which subsided the following day as did her nausea and vomiting. Her loose stools however did continue, and she has been having watery diarrhea around 15 times per day, and she has not eaten or drinking much since then. She went to see a doctor at the [facility] and they sent her for lab work and then was told to come to the emergency room. She Has not had further fever since 1 week ago. She has mild cramping abdominal pain as well primarily in the bilateral lower quadrants. She denies any hematemesis, bright red blood per rectum, melena, chest pain, palpitations, lower extremity edema, rash. She denies any headaches or vision changes, but her reports some dizziness in the car ride today. She does not report any unusual intake food, but does have a friend with less severe symptoms. She denies any recent travel or hiking, no seafood intake, and no swimming. She denies any recent antibiotic use, but is on terbinafine for nail fungus. In the ED her labs were remarkable for a sodium of 120, potassium of 2.6. Her lipase was mildly elevated at 637. There is no leukocytosis. She had no abdominal imaging. She was admitted to Medicine for hyponatremia and hypokalemia. Discharge Providers Provider Date of admission: 03/12/19 16:28 Discharge Date: 03/14/19 Primary care physician: Samantha Weiss DO Discharge provider: Jayro Pitts DO Summary Hospital Course Discharge Diagnosis: 1. Hyponatremia, unknown duration but likely chronic, present on admission - 2. Hypokalemia, acute, present on admission - 3. Diarrhea, acute, infectious - Secondary to salmonella 4. HTN, chronic - Hospital Course: Luis Miguel Hu is a 53-year-old female with past medical history of hypertension and GERD who was admitted to the hospital with hyponatremia and hypokalemia secondary to diarrhea and decreased p.o. intake, found to have Salmonella enteritis. She was started on Levaquin and her diarrhea improved. Her sodium improved rapidly and normal saline infusion had to be stopped, however she corrected on her own and at an appropriate rate. She was tolerating a diet and had improving diarrhea and she felt well enough to go home. Her final sodium before discharge was 133, and I have ordered to check this as an outpatient. 1. Hyponatremia, unknown duration but likely chronic, present on admission -patient with a sodium of 120 on admission. Likely secondary to GI fluid loss and poor p.o. intake. Improved to 133 appropriately at discharge. She was tolerating a diet and was largely correcting on her own the last 24 hours. -outpatient BMP ordered in 5 days to recheck her sodium. 2. Hypokalemia, acute, present on admission -likely secondary to GI losses. She was given IV and p.o. replacement in the emergency room. Required additional oral replacement overnight and is now within normal limits. -outpatient BMP ordered in 5 days to recheck her potassium as well. 3. Diarrhea, acute, infectious - Secondary to salmonella given GI panel results. Treatment is usually supportive however given the frequency of her bowel movements, reported fever, and need for hospitalization we will treat this with Levaquin with plan for 7 days - levaquin x7 days, can conclude as outpatient. -she should follow up with her primary care provider early next week. 4. HTN, chronic - -she can resume her home medications as blood pressure was just slightly elevated on discharge. Dispo: Discharge home in stable condition. Exam Vital Signs (past 8 hours): - 03/14/19 11:30 03/14/19 15:30 Temperature 99.2 F 97.0 F L Pulse Rate 77 84 Respiratory Rate 16 17 Blood Pressure 115/58 L 148/91 H Pulse Oximetry 99 100 Oxygen Delivery Method Room Air Oxygen Flow Rate 0 Narrative Exam Narrative: GENERAL APPEARANCE: Well developed, well nourished, in no acute distress. SKIN: Inspection of the skin reveals no rashes, ulcerations or petechiae. HEENT: The sclerae were anicteric and conjunctivae were pink and moist. Extraocular movements were intact and pupils were equal, round with normal accommodation. External inspection of the ears and nose showed no scars, lesions, or masses. Lips, teeth, and gums showed normal mucosa. The oral mucosa, hard and soft palate, tongue and posterior pharynx were unremarkable. NECK: Supple and symmetric. There was no thyroid enlargement, and no tenderness, or masses were felt. CHEST: Normal AP diameter and normal contour without any kyphoscoliosis. LUNGS: Auscultation of the lungs revealed no wheezes, rhonchi, or rales. CARDIOVASCULAR: There was a regular rate and rhythm without any murmurs, gallops, rubs. Peripheral pulses were 2+ and symmetric. ABDOMEN: Soft and nontender with normal bowel sounds. No ascites was noted. MUSCULOSKELETAL: There was no tenderness or effusions noted. Muscle strength and tone were normal. EXTREMITIES: No cyanosis, clubbing or edema. NEUROLOGIC: Alert and oriented x 3. Normal affect. Gait was normal. Strength is +5/5 in the Upper Extremities and Lower Extremities Bilaterally. Sensation to touch was normal. Objective Labs Result Diagrams: 03/14/19 05:49 03/14/19 14:06 Labs: Laboratory Results - last 24 hr 03/13/19 03/14/19 03/14/19 18:38 05:49 05:49 WBC 7.0 RBC 4.70 Hgb 13.4 Hct 39.5 MCV 84.0 MCH 28.5 MCHC 34.0 RDW 13.5 Plt Count 278 Neut % (Auto) 69.8 Lymph % (Auto) 19.5 L [place] % (Auto) 9.9 Eos % (Auto) 0.4 L Baso % (Auto) 0.4 Neut # (Auto) 4900 Lymph # (Auto) 1400 [place] # (Auto) 700 Eos # (Auto) 0 Baso # (Auto) 0 Sodium 129 L 130 L Potassium 3.5 3.5 Chloride 94 L 95 L Carbon Dioxide 26 26 BUN 6 L 5 L Creatinine 0.70 0.70 Estimated GFR > 60.0 > 60.0 BUN/Creatinine Ratio 8.6 7.1 Glucose 153 H 100 Calcium 8.7 8.4 Magnesium 2.0 03/14/19 14:06 WBC RBC Hgb Hct MCV MCH MCHC RDW Plt Count Neut % (Auto) Lymph % (Auto) [place] % (Auto) Eos % (Auto) Baso % (Auto) Neut # (Auto) Lymph # (Auto) [place] # (Auto) Eos # (Auto) Baso # (Auto) Sodium 133 L Potassium 3.2 L Chloride 95 L Carbon Dioxide 24 BUN 4 L Creatinine 0.60 Estimated GFR > 60.0 BUN/Creatinine Ratio 6.7 Glucose 132 H Calcium 9.0 Magnesium Discharge Plan Discharge Plan Patient Disposition: Home Discharge comment: You were admitted to the hospital for a very low sodium and potassium level secondary to salmonella gastroenteritis. Your symptoms improved quite dramatically while here and your sodium was appropriately returning to normal on its own without fluids. Your tolerating a diet. You will complete a 7 day total course of levofloxacin at home. This medication was E-prescribed to the pharmacy at the [facility]. Please remember to keep adequately hydrated and if you get any worse please seek medical attention. You should follow up with your primary care provider in a couple of days (early next week) to recheck your sodium and your symptoms. Discharge Med Rec/Prescriptions Prescriptions: New levofloxacin 500 mg tablet 500 mg PO DAILY 5 Days Qty: 5 RF: 0 Continued terbinafine HCl 250 mg tablet 250 mg PO DAILY RF: 0 lisinopril 20 mg tablet 20 mg PO DAILY RF: 0 ondansetron 8 mg Tablet,Disintegrating 8 mg PO Q8H PRN (Reason: Nausea) RF: 0 omeprazole 20 mg capsule,delayed release(DR/EC) 20 mg PO DAILY RF: 0 metoclopramide HCl 10 mg Tablet 10 mg PO QID PRN (Reason: cramping/nausea) RF: 0 calcium carbonate-vitamin D3 [Calcium 500 + D] 500 mg(1,250mg) -200 unit Tablet 1 tab PO DAILY RF: 0 Discontinued diphenoxylate-atropine 2.5-0.025 mg Tablet 2 tab PO QID PRN (Reason: Loose Stool) RF: 0 Other Ambulatory Orders: Basic Metabolic Panel (Routine) Timeframe: 5 Days Facility: [facility] - Location: Laboratory Ordered By: Jayro Pitts Follow up/Referrals: Samantha Weiss DO [Primary Care Provider] - Provider Discharge Instructions Diet: Diet as Tolerated Activity: As tolerated Visit Report/Discharge Packet Instructions: Diarrhea, DI for Heart Failure, DI for Salmonellosis Discharge Data Primary Care Provider: Samantha Weiss Quality VTE Deep Vein Thrombosis/Pulmonary Embolism Present on Admission: No
[2019-03-14 17:41] VITALS: O2SAT 98
--- NOTE | 2019-03-14 18:03 | PC.NURSE ---
1809- Pt IV removed, tip intact, Telemetry off, ICU notified. VSS. All documents given to pt and . discharge instrucftions verbally explained to pt with pt verbal states understands. [employer] wheelchair down to ED entrance, where is waiting.
[2019-03-15 18:47] LABS: Osmolality Urine 246 mOsm/kg (50-1200)
== END 2019-03-14 18:08 | disposition home or self-care (01) | DRG 641 ==
LOC: ED 15:27 → AC 16:29
PROVIDERS: Emergency Medicine; Nurse Practitioner Adult Health; Admitting Provider Internal Medicine; Emergency Provider Nurse Practitioner Family; PCP Family Medicine; Visit Provider Internal Medicine
DX: E87.1 Hypo-osmolality and hyponatremia (principal); A09 Infectious gastroenteritis and colitis, unspecified; A02.8 Other specified salmonella infections; E87.6 Hypokalemia; K21.9 Gastro-esophageal reflux disease without esophagitis; I10 Essential (primary) hypertension
CPT/HCPCS: 36415; 36591; 80048; 80053; 83690; 83735; 83935; 84133; 84300; 84443; 85025; 85610; 85730; 87045; 87086; 87177; 87507; 93005; 93010; 96361; 96365; 96375; 99283; 99284; J1644; J1956; J2405; J3480

== ENCOUNTER 2019-05-01 10:51 | Day surgery (SDC) | payer OTHER, SELFPAY ==
[2019-03-12 17:44] VITALS: BMI 25.0
--- NOTE | 2019-05-01 | PATH_ITS ---
[facility] Accession Number: [id number] . 01 Material submitted: . PART A: gastrointestinal site - GASTRIC POLYP PART B: esophagus - IRREGULAR Z-LINE . 01 Clinical history: . B: R/O MCRAE'S . 02 Diagnosis: A. Stomach, Polyp, Biopsy: Fundic gland polyp. No evidence of Helicobacter on H/E stain. Negative for intestinal metaplasia. Negative for dysplasia and malignancy. . B. 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 Negative for dysplasia and malignancy. MRV 05/02/2019 1423 Local . 02 Electronically signed: . Diane Méndez MD, Pathologist NPI- [id number] . 01 Gross description: . Part A: GASTRIC POLYP: Received in formalin is 1 fragment(s) of mcintosh, soft tissue measuring 0.3 x 0.3 x 0.2 cm submitted entirely in 1 cassette(s) Part B: IRREGULAR Z-LINE: Received in formalin is 1 fragment(s) of mcintosh, soft tissue measuring 0.2 x 0.2 x 0.1 cm submitted entirely in 1 cassette(s) /QBJ 05/02/2019 0014 Local . 02 Pathologist provided ICD-10: K22.70 . 02 CPT . 424147, 139267 Performed at: 01 [facility] [address], [place], [place] [id number] MD Sundar Jacobs MD Phone: [phone] Performed at: 02 [facility] [address] [place], [place] [id number] MD Diane Méndez MD Phone: [phone]
[2019-05-01 11:26] VITALS: BP 115/74; PULSE 73; RESP 17; TEMP 36.3; O2SAT 99; BMI 23.8
[2019-05-01 12:21] VITALS: BP 104/70; PULSE 74; RESP 19; TEMP 36.2; O2SAT 100
--- NOTE | 2019-05-01 13:42 | PM.HP.1 ---
History of Present Illness History of Present Illness Chief complaint: [id number] Patient History Medical History GERD (gastroesophageal reflux disease) (Acute) HTN (hypertension) (Acute) Family & Social History Social History: household members spouse Tobacco & Substance use: Smoking Status Never smoker alcohol intake never Substance Use Type does not use Meds Home Medications and Allergies Home Medications Medication Instructions Recorded Confirmed Type calcium carbonate-vitamin D3 1 tab PO DAILY 03/12/19 05/01/19 History [Calcium 500 + D] lisinopril 20 mg PO DAILY 03/12/19 05/01/19 History omeprazole 20 mg PO DAILY 03/12/19 05/01/19 History Allergies Allergy/AdvReac Type Severity Reaction Status Date / Time No Known Drug Allergies Allergy Verified 03/12/19 15:24 Review of Systems Review of Systems ROS Unobtainable: All systems reviewed & are unremarkable except as noted in HPI and below Exam Vital Signs (past 8 hours): - 05/01/19 11:26 Temperature 97.3 F L Pulse Rate 73 Respiratory Rate 17 Blood Pressure 115/74 Pulse Oximetry 99 Oxygen Delivery Method Room Air Narrative Exam Narrative: Awake alert oriented x3, no acute distress, lungs clear, heart regular rate and rhythm, abdomen nondistended nontender, no lower extremity edema Assessment & Plan Assessment & Plan narrative: Reflux symptoms, colon cancer screening, for EGD and colonoscopy
--- NOTE | 2019-05-01 13:54 | PM.OP.ENDO ---
Operative Date/Time/Diagnoses Date of procedure: 05/01/19 Procedure & Clinicians Study performed: EGD with biopsy Moderate conscious sedation was administered by the endoscopy nurse and supervised by the endoscopist. The following parameters were monitored: Oxygen saturation, heart rate, blood pressure, and response to care. Sedative total: 3 mg midazolam, 100 mcg fentanyl Same procedure as scheduled: Yes Indications: New onset GERD symptoms, family history of stomach cancer Procedure Notes Procedure in detail: Prior to the procedure, history and physical was performed, and patient medications and allergies were reviewed. Preprocedure nursing history and assessment was reviewed. Patient identification and proposed procedure were verified by the physician and nurse in the procedure room. The physical status of the patient was reassessed after the procedure. After informed consent was obtained including risks, benefits, and alternatives, the scope was passed under direct vision. Throughout the procedure, the patient's blood pressure, pulse, and oxygen saturations were monitored continuously. The upper endoscope was introduced through the mouth and advanced to the 2nd portion of the duodenum. Retroflexion was performed in the stomach. The patient tolerated the procedure well. The entire examined esophagus was normal appearing. The Z-line was irregular and was located at 40 cm. This was characterized by an 8 mm tongue of salmon-colored mucosa extending above the Z-line. Biopsies taken to rule out Bond's esophagus The lower esophageal sphincter was patulous. Small sliding hiatal hernia noted. Hill grade 3 configuration. A few 3-5 mm polyps were noted in the fundus. Biopsies taken. The entire examined duodenum was normal appearing Impression: Irregular Z-line, biopsies taken to rule out Bond's esophagus Patulous lower esophageal sphincter Gastric polyps in the fundus, biopsied Normal appearing duodenum Complications: other (EBL minimal, no complications) Post-procedure Plan for aftercare: Follow-up pathology results Follow anti-reflux diet and lifestyle Proceed with colonoscopy today Follow-up in GI clinic
--- NOTE | 2019-05-01 14:06 | SUR.OPER ---
[id number] IN LABELED BAG TO PACU WITH PATIENT
[2019-05-01] MEDS: fentaNYL 250 MCG/5 ML INJ IV (14:17)
--- NOTE | 2019-05-01 14:17 | PM.OP.ENDO ---
Operative Date/Time/Diagnoses Date of procedure: 05/01/19 Procedure & Clinicians Study performed: Colonoscopy Moderate conscious sedation was administered by the endoscopy nurse and supervised by the endoscopist. The following parameters were monitored: Oxygen saturation, heart rate, blood pressure, and response to care. Subjective total: 1 mg midazolam plus medications given during EGD Same procedure as scheduled: Yes Indications: Colon cancer screening. No prior colonoscopy. Procedure Notes Procedure in detail: Prior to the procedure, history and physical was performed, and patient medications and allergies were reviewed. Preprocedure nursing history and assessment was reviewed. Patient identification and proposed procedure were verified by the physician and nurse in the procedure room. The physical status of the patient was reassessed after the procedure. After informed consent was obtained including risks, benefits, and alternatives, the scope was passed under direct vision. Throughout the procedure, the patient's blood pressure, pulse, and oxygen saturations were monitored continuously. The colonoscope was introduced through the anus and advanced to the cecum as identified by the appendiceal orifice and ileocecal valve. The patient tolerated the procedure well. Bowel prep was deemed good and adequate to detect polyps greater than 5 mm. Perianal exam and digital rectal exam were unremarkable. Retroflexion in the rectum revealed grade 1 internal hemorrhoids. The entire examined colon was otherwise normal appearing. Impression: Internal hemorrhoids Normal colonoscopy No specimens taken Sedation minutes: 27 Complications: other (EBL none. No complications) Post-procedure Plan for aftercare: Repeat colonoscopy in 10 years for screening purposes Resume home medications Resume previous diet Follow-up in GI clinic as previously scheduled Discharge home with escort when discharge criteria met
[2019-05-01] MEDS: MIDAZOLAM 5 MG/5 ML VIAL IV (14:18)
[2019-05-01 14:26] VITALS: BP 102/67; PULSE 66; RESP 18; O2SAT 99
--- NOTE | 2019-05-01 14:29 | SUR.PHASEI ---
Documentation correction note: Entered wrong time of documentation when arrived to PACU. entered 1221 instead of 1421.
--- NOTE | 2019-05-01 14:30 | SUR.PHASEI ---
Post procedure note: patient arrived to PACU from Endo at 1421 via stretcher. VSS and O2 Sat WNL on RA. No complaints of pain. Continue with post procedure plan of care.
[2019-05-01 14:32] VITALS: BP 97/67; PULSE 71; RESP 14; O2SAT 99
[2019-05-01 14:36] VITALS: BP 104/70; PULSE 69; RESP 12; TEMP 36.9; O2SAT 100
[2019-05-01 14:45] VITALS: BP 106/72; PULSE 68; RESP 18; TEMP 36.9; O2SAT 99
== END 2019-05-01 15:07 | disposition home or self-care (01) ==
PROVIDERS: PCP Family Medicine; Visit Provider Internal Medicine
PROC: 0DJ08ZZ Inspection of Upper Intestinal Tract, Via Natural or Artificial Opening Endoscopic (ICD-10-PCS; CPT 43235; principal; 2019-05-01 12:30)
PROC: 0DJD8ZZ Inspection of Lower Intestinal Tract, Via Natural or Artificial Opening Endoscopic (ICD-10-PCS; CPT 45378; 2019-05-01 12:30)
DX: Z12.11 Encounter for screening for malignant neoplasm of colon (principal); K21.9 Gastro-esophageal reflux disease without esophagitis; K44.9 Diaphragmatic hernia without obstruction or gangrene; K22.70 Barrett's esophagus without dysplasia; K64.0 First degree hemorrhoids
CPT/HCPCS: 43239; 45378; J2250; J3010

== ENCOUNTER → 2021-05-01 12:28 | Outpatient (CLI) | payer OTHER, SELFPAY ==
[2019-03-12 17:44] VITALS: BMI 25.0
--- NOTE | 2021-05-01 12:29 | DI.MG.S_ITS ---
BILATERAL DIGITAL SCREENING MAMMOGRAM 3D/2D WITH CAD: 05/01/2021 CLINICAL: Routine screening. Comparison is made to exams dated: 05/05/2016 mammogram, 10/08/2017 mammogram, and 11/20/2018 mammogram - [facility]. The tissue of both breasts is heterogeneously dense. This may lower the sensitivity of mammography. Current study was also evaluated with a Computer Aided Detection (CAD) system. No significant masses, calcifications, or other findings are seen in either breast. There has been no significant interval change. IMPRESSION: NEGATIVE There is no mammographic evidence of malignancy. A 1 year screening mammogram is recommended. This exam was interpreted at Station ID: [id number]. NOTE: For mammograms, a report in lay terms will be sent to the patient. Approximately 15% of breast malignancies will not be visualized mammographically. In the management of a palpable breast mass, a negative mammogram must not discourage biopsy of a clinically suspicious lesion. Electronically Signed By: Baldo phillips/mariluz:05/03/2021 09:12:28 letter sent: Normal Exam ACR BI-RADS Category 1: Negative [id number]
== END ==
PROVIDERS: PCP Family Medicine; Referring Provider Family Medicine; Visit Provider Family Medicine
DX: Z12.31 Encounter for screening mammogram for malignant neoplasm of breast (principal)
CPT/HCPCS: 77063; 77067

== ENCOUNTER 2025-06-06 10:37 | Emergency (ER) | payer OTHER, SELFPAY ==
[2019-03-12 17:44] VITALS: BMI 25.0
[2025-06-06 10:54] VITALS: BP 144/77; PULSE 103; RESP 16; TEMP 36.9; O2SAT 99; BMI 22.3
--- NOTE | 2025-06-06 10:59 | DI.CT.S_ITS ---
PROCEDURE: CT FACIAL BONES WO CON INDICATIONS: fall, L orbital pain TECHNIQUE: Noncontrast 2.5 mm thick axial images acquired from the mandible through the frontal sinuses, with coronal and sagittal reformatting. For radiation dose reduction, the following was used: automated exposure control, adjustment of mA and/or kV according to patient size. COMPARISON: None. FINDINGS: Image quality: Excellent. Bones and teeth: Orbital chang are intact. Sinus chang show no fracture or deformity. Nasal bones and septum are intact. Visualized portions of the mandible demonstrate no fractures or subluxation. Zygomatic arches are intact. Pterygoid plates are intact. Visualized portions of the skull base and auditory canals are intact. Sinuses: Mild paranasal sinus mucosal thickening and small mucous retention cysts. Mastoid air cells are aerated. Soft tissues: Left frontal and periorbital soft tissue swelling.. No enlarged lymph nodes. No soft tissue lacerations or debris. Vascular: Visualized vascular structures appear normal in the absence of contrast. Bony vascular foramina and canals are intact. IMPRESSION: No acute facial fractures. Dictated by: Domenico Farrar M.D. on 06/06/2025 at 11:25 Approved by: Domenico Farrar M.D. on 06/06/2025 at 11:27
--- NOTE | 2025-06-06 10:59 | DI.CT.S_ITS ---
PROCEDURE: CT HEAD/BRAIN WO CON INDICATIONS: fall, L orbit pain TECHNIQUE: Noncontrast 4.5 mm thick angled axial sections acquired from the foramen magnum to the vertex, with coronal and sagittal reformats. For radiation dose reduction, the following was used: automated exposure control, adjustment of mA and/or kV according to patient size. COMPARISON: None. FINDINGS: Image quality: Diagnostic. CSF spaces: Basal cisterns are patent. No extra-axial fluid collections. Ventricles are normal in size and shape. Brain: No midline shift. No intracranial mass effect or hemorrhage. Hollins- white matter interface is normal. Skull and face: Left frontal scalp and periorbital soft tissue swelling. Calvarium and visualized facial bones are intact, without suspicious lesions. Sinuses: Visualized sinuses and mastoids are clear. IMPRESSION: No acute intracranial pathology. Dictated by: Domenico Farrar M.D. on 06/06/2025 at 11:24 Approved by: Domenico Farrar M.D. on 06/06/2025 at 11:25
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
[2025-06-06 11:48] VITALS: BP 147/83; PULSE 87; RESP 16; O2SAT 100
== END 2025-06-06 12:00 | disposition home or self-care (01) ==
PROVIDERS: Emergency Provider Emergency Medicine
DX: S00.83XA Contusion of other part of head, initial encounter (principal); W01.10XA Fall on same level from slipping, tripping and stumbling with subsequent striking against unspecified object, initial encounter; Y93.K1 Activity, walking an animal
CPT/HCPCS: 70450; 70486; 99281; 99284